=== PATIENT | male | born 1960 | race Caucasian/White ===

== ENCOUNTER 2019-10-07 07:03 | Day surgery (SDC) | payer OTHER ==
[~2019-10-07] VITALS: Ht 188 cm; Wt 85.0 kg
[2019-10-07] VITALS (8 sets, daily range): BP systolic 128–152; BP diastolic 76–94; PULSE 75–95; TEMP 98.1–98.4
--- NOTE | 2019-10-07 11:15 | NUR ---
Pt returned via cart to [facility]. Pt A&O. Requested ice chips and saltines. VSS-see flowsheet. Family brought to room to visit. Pt reports discomfort but denies wanting intervention at this time. Side rails up and call light in reach.
--- NOTE | 2019-10-07 11:30 | NUR ---
Pt reports pain increasing and requesting pain medication. Will administer medication per orders.
--- NOTE | 2019-10-07 11:40 | NUR ---
Pt reports pain at a 7/10 in abdomen. Given dilaudid per orders. Denies need to reposition or other intervention at this time. Side rails up and call light in reach. Family present at bedside.
--- NOTE | 2019-10-07 12:15 | NUR ---
Pt reports pain relief. Rating pain a 3/10. Denies needs at this time.
--- NOTE | 2019-10-07 16:45 | NUR ---
Pt up to bathroom to void without difficulty. SBA to bathroom, pt had steady gait. Tolerated part of a muffin, pb toast and water without nausea. VS remain stable-see flowsheet. IV removed with pressure dressing applied. Pt dressed independently. Discharge teaching completed with and daughter present. Pt verbalized understanding, taken via wheelchair to private vehicel for dc home with spouse to drive.
== END 2019-10-07 16:45 | disposition home or self-care (01) ==
LOC: SDCO 07:03
DX: K40.90 Unilateral inguinal hernia, without obstruction or gangrene, not specified as recurrent (principal); E78.00 Pure hypercholesterolemia, unspecified; Z80.52 Family history of malignant neoplasm of bladder; Z82.49 Family history of ischemic heart disease and other diseases of the circulatory system
CPT/HCPCS: C1781; J0690; J1100; J1170; J1885; J2250; J2405; J2704; J3010; J7120